=== PATIENT | female | born 1965 ===

== ENCOUNTER 2017-09-06 22:25 | Observation (INO) ==
[2017-09-07] MEDS ORDERED: PROMETHAZINE 25 MG/1 ML VIAL IM PRN (00:52)
[2017-09-07] MEDS ORDERED: ACETAMINOPHEN 325 MG TABLET PO PRN (00:52)
[2017-09-07] MEDS ORDERED: ONDANSETRON 4 MG/2 ML VIAL IV PRN (00:52)
[2017-09-07] MEDS ORDERED: GLUCAGON 1 MG VIAL IM PRN (00:54)
[2017-09-07] MEDS ORDERED: DEXTROSE 50% 25 GM/50 ML VIAL IV PRN (00:54)
[2017-09-07 01:55] LABS: Basophils % 0.3 % (0.0-0.8); Eosinophils % 0.1 % (0.00-10.9); Hematocrit 39.6 VOL% (35.7-47.0); Immature Granulocytes % 0.5 %; Immature Granulocytes Absolute 0.06 #; Lymphocytes # 1.2 10*3/uL (1.4-4.0); Lymphocytes % 9.7 % (21.3-54.2); Mean Corpuscular HGB Conc 32.8 GM/DL (32-36); Mean Corpuscular Hemoglobin 29 PG (27-34); Mean Corpuscular Volume 88.2 FL (87-102); Mean Platelet Volume 11.5 FL (9.6-12.0); Monocytes # 0.3 10*3/uL (0.11-0.8); Monocytes % 2.6 % (1.7-12.7); Neutrophils # 10.6 10*3/uL (1.4-7.4); Neutrophils % 86.8 % (38.7-73.9); Platelet Count 259 T/CUMM (130-400); Red Blood Count 4.49 MC/CUMM (3.8-5.5); Red Cell Distribution Width 13.8 % (9.3-17.3); White Blood Count 12.2 T/CUMM (4-12)
[2017-09-07 02:04] LABS: Albumin 2.8 G/DL (3.4-5.0); Bilirubin,Total 0.4 MG/DL (0.2-1.0); Calcium 8.5 MG/DL (8.5-10.1); Osmolality,Calculated 288.7 MOS/KG (273-304); Potassium 4.5 MMOL/L (3.5-5.1)
[2017-09-07] MEDS ORDERED: KETOROLAC 15 MG/1 ML VIAL IV PRN (02:33)
[2017-09-07] MEDS ORDERED: MORPHINE 4 MG/1 ML VIAL IV PRN (02:33)
[2017-09-07] MEDS ORDERED: cloNIDine 0.1 MG TABLET PO PRN (03:09)
[2017-09-07] MEDS: SODIUM CHLORIDE 0.9% 1,000 ML IV SCH ×2 (06:00→18:40)
[2017-09-07] MEDS: PANTOPRAZOLE 40 MG VIAL IV SCH (08:38)
[2017-09-07] MEDS: ENOXAPARIN 40 MG/0.4 ML SYRINGE SUBCUT SCH (08:38)
[2017-09-07] MEDS: OMEGA 3 ACID ETHYL ESTERS 1 GM CAPSULE PO SCH (08:39)
[2017-09-07] MEDS: hydrALAZINE 25 MG TABLET PO SCH ×2 (08:39→21:43)
[2017-09-07] MEDS: FERROUS SULFATE 325 MG TABLET PO SCH (08:39)
[2017-09-07] MEDS: INSULIN GLARGINE 100 UNIT/ML SUBCUT SCH (08:39)
[2017-09-07] MEDS: INSULIN LISPRO 100 UNIT/ML SUBCUT SCH ×4 (08:39→21:43)
[2017-09-07] MEDS: ASPIRIN EC 81 MG TABLET PO SCH (08:39)
[2017-09-07] MEDS: METOPROLOL SUCCINATE XL 50 MG TABLET PO SCH (08:39)
[2017-09-07] MEDS: MOISTURIZING CREAM (EUCERIN) 113 GM JAR TOP SCH (08:39)
[2017-09-07 14:53] LABS: Apearance,Urine CLOUDY (Clear); Bacteria,Urine Many /HPF (Few); Bilirubin,Urine Negative (Negative); Blood, Urine Small mg/dL (Negative); Glucose,Urine (UA) >=500 mg/dL (Negative); Hyaline Casts,Urine 45 /LPF (0-3); Ketones,Urine 5 mg/dL (Negative); Mucus,Urine Occasional /LPF (Occasional); Nitrite,Urine Negative (Negative); Protein,Urine >=500 MG/DL; RBC,Urine 5 /HPF (0-4); Squamous Epithelial Cell,Urine Occasional /HPF (0-10); Urine Color Yellow (Yellow); Urine Specific Gravity 1.021 (1.001-1.035); Urine Urobilinogen < 2.0 EU/DL (0.2-1.0); WBC,Urine 38 /HPF (0-6)
[2017-09-07] MEDS ORDERED: INSULIN GLARGINE 100 UNIT/ML SUBCUT ONE (21:00)
[2017-09-07] MEDS ORDERED: SIMVASTATIN 20 MG TABLET PO SCH (21:00)
[2017-09-08 06:32] LABS: Basophils % 0.6 % (0.0-0.8); Eosinophils # 0.3 10*3/uL (0.0-0.87); Eosinophils % 3.7 % (0.00-10.9); Hematocrit 35.4 VOL% (35.7-47.0); Hemoglobin 11.6 GM/DL (12.0-16.0); Immature Granulocytes % 0.6 %; Immature Granulocytes Absolute 0.04 #; Lymphocytes # 2.3 10*3/uL (1.4-4.0); Lymphocytes % 34.5 % (21.3-54.2); Mean Corpuscular HGB Conc 32.8 GM/DL (32-36); Mean Corpuscular Hemoglobin 30 PG (27-34); Mean Corpuscular Volume 90.1 FL (87-102); Mean Platelet Volume 10.9 FL (9.6-12.0); Monocytes # 0.5 10*3/uL (0.11-0.8); Monocytes % 7.6 % (1.7-12.7); Neutrophils # 3.6 10*3/uL (1.4-7.4); Platelet Count 203 T/CUMM (130-400); Red Blood Count 3.93 MC/CUMM (3.8-5.5); Red Cell Distribution Width 14.1 % (9.3-17.3); White Blood Count 6.8 T/CUMM (4-12)
[2017-09-08 07:14] LABS: Calcium 8.1 MG/DL (8.5-10.1); Osmolality,Calculated 283.4 MOS/KG (273-304); Potassium 4.3 MMOL/L (3.5-5.1)
[2017-09-08] MEDS: METOPROLOL SUCCINATE XL 50 MG TABLET PO SCH (08:32)
[2017-09-08] MEDS: FERROUS SULFATE 325 MG TABLET PO SCH (08:33)
[2017-09-08] MEDS: hydrALAZINE 25 MG TABLET PO SCH (08:33)
[2017-09-08] MEDS: ASPIRIN EC 81 MG TABLET PO SCH (08:33)
[2017-09-08] MEDS: OMEGA 3 ACID ETHYL ESTERS 1 GM CAPSULE PO SCH (08:34)
[2017-09-08] MEDS: INSULIN GLARGINE 100 UNIT/ML SUBCUT SCH (08:34)
[2017-09-08] MEDS: INSULIN LISPRO 100 UNIT/ML SUBCUT SCH ×2 (08:35→11:31)
[2017-09-08] MEDS: ENOXAPARIN 40 MG/0.4 ML SYRINGE SUBCUT SCH (08:36)
[2017-09-08] MEDS: PANTOPRAZOLE 40 MG VIAL IV SCH (08:37)
[2017-09-08] MEDS: MOISTURIZING CREAM (EUCERIN) 113 GM JAR TOP SCH (08:48)
[2017-09-08] MEDS: SODIUM CHLORIDE 0.9% 1,000 ML IV SCH (09:34)
[2017-09-08 11:10] VITALS: BP 153/81
== END 2017-09-08 12:30 | disposition home or self-care (01) ==
LOC: N.2E → SUATTDRO 09-07 00:08
PROVIDERS: ADMIT Internal Medicine; ATTEND Internal Medicine